=== PATIENT | female | born 1960 | race Hispanic/Latino ===

== ENCOUNTER 2019-03-25 17:08 | Emergency (ER) | payer MEDICARE ==
[2019-03-25] MEDS ORDERED: Ibuprofen 200 MG TAB ONE (18:23)
== END 2019-03-25 18:30 | disposition home or self-care (01) ==
LOC: NAV ERS 17:08
DX: T63.301A Toxic effect of unspecified spider venom, accidental (unintentional), initial encounter (principal); G47.00 Insomnia, unspecified; I10 Essential (primary) hypertension; F41.9 Anxiety disorder, unspecified; F32.9 Major depressive disorder, single episode, unspecified
CPT/HCPCS: 99282